=== PATIENT | female | born 1930 | race Caucasian/White ===

== ENCOUNTER 2016-11-24 11:40 | Emergency (ER) | payer OTHER ==
[~2016-11-24] VITALS: Wt 53.0 kg
[2016-11-24] MEDS ORDERED: BELLADONNA/PHENOBARBITAL TAB PO STA (12:37)
[2016-11-24] MEDS ORDERED: LIDOCAINE/MYLANTA 40 ML BTL PO STA (12:37)
[2016-11-24] MEDS ORDERED: ONDANSETRON 4 MG INJ IV STA (12:37)
[2016-11-24] MEDS ORDERED: KETOROLAC 15 MG INJ IV STA (12:37)
[2016-11-24] MEDS ORDERED: SOD CHLORIDE 0.9% 1,000 ML IV STA (12:37)
[2016-11-24 12:51] LABS: BASOPHILS % 0.4 % (0.0-2.0); EOSINOPHILS # 0.1 10^3/ul (0.0-0.5); EOSINOPHILS % 2.2 % (0.0-7.0); HEMATOCRIT 40.4 % (37.0-47.0); LYMPHOCYTES # 1.1 10^3/ul (0.8-2.9); LYMPHOCYTES % 22.5 % (15.0-51.0); MEAN CORPUSCULAR HEMOGLOBIN 30.3 pg (29.0-33.0); MEAN CORPUSCULAR HGB CONC 34.8 g/dl (32.0-37.0); MEAN CORPUSCULAR VOLUME 87.3 fl (82.0-101.0); MEAN PLATELET VOLUME 7.5 fl (7.4-10.4); MONOCYTE # 0.5 10^3/ul (0.3-0.9); MONOCYTES % 10.9 % (0.0-11.0); PLATELET COUNT 226 10^3/UL (140-440); RED BLOOD COUNT 4.63 10^6/ul (4.20-5.40); RED CELL DISTRIBUTION WIDTH 12.5 % (11.5-14.5); UNCORRECTED WBC 4.7 10^3/ul (4.8-10.8); WHITE BLOOD COUNT 4.7 10^3/ul (4.8-10.8)
[2016-11-24 12:54] LABS: CONDITION 1
[2016-11-24 12:58] LABS: ALBUMIN 4.3 g/dl (3.3-4.9)
[2016-11-24 12:59] LABS: CHLORIDE 91 mmol/L (97-110); INR 0.88; POTASSIUM 4.2 mmol/L (3.5-5.1); PROTIME 11.9 Sec (12.2-14.2); PT RATIO 0.9; SODIUM 132 mmol/L (135-144)
[2016-11-24 13:01] LABS: ALBUMIN/GLOBULIN RATIO 1.72; ALKALINE PHOSPHATASE 69 IU/L (42-121); ANION GAP 15 (8-16); ASPARTATE AMINO TRANSFERASE 29 IU/L (15-46); BILIRUBIN,INDIRECT 0.2 mg/dl (0-1.1); BILIRUBIN,TOTAL 0.2 mg/dl (0.2-1.3); CARBON DIOXIDE 30 mmol/L (21-31); CREATININE 0.92 mg/dl (0.44-1.00); TOTAL PROTEIN 6.8 g/dl (6.1-8.1)
[2016-11-24 13:02] LABS: ALANINE AMINOTRANSFERASE 30 IU/L (13-69); BLOOD UREA NITROGEN 24 mg/dl (7-20); CALCIUM 10.2 mg/dl (8.4-10.2); GLUCOSE 98 mg/dl (70-220)
[2016-11-24 13:23] LABS: TROPONIN-I < 0.012 ng/ml (0.00-0.12)
[2016-11-24 13:25] LABS: ADD UMIC YES; URINE BILIRUBIN (Dip) NEGATIVE (NEGATIVE); URINE BLOOD (Dip) 1+ (NEGATIVE); URINE COLOR LT. YELLOW (YELLOW); URINE GLUCOSE (Dip) NEGATIVE (NEGATIVE); URINE KETONES (Dip) NEGATIVE (NEGATIVE); URINE LEUKOCYTE ESTERASE (Dip) TRACE (NEGATIVE); URINE NITRITE (Dip) NEGATIVE (NEGATIVE); URINE TOTAL PROTEIN (Dip) NEGATIVE (NEGATIVE); URINE UROBILINOGEN (Dip) 0.2 E.U./dL (0.1-1.0)
[2016-11-24 13:40] LABS: BACTERIA,URINE RARE; URINE RBCS 0-2 /HPF (0)
[2016-11-24] MEDS ORDERED: OMEP20CA16 PO (13:45)
[2016-11-24] MEDS ORDERED: LISI20TA11 PO (13:46)
[2016-11-24] MEDS ORDERED: HYD25 PO (13:46)
[2016-11-24] MEDS ORDERED: POLY17PO6 PO (14:53)
[2016-11-24] MEDS ORDERED: FLEETOIL PR (14:53)
[2016-11-24] MEDS ORDERED: NAPR-688 PO (14:53)
[2016-11-24] MEDS ORDERED: DOCU-144 PO (14:53)
--- NOTE | 2016-11-24 15:00 | ERD ---
ER Documentation Chief Complaint Date/Time DATE: 11/24/16 TIME: 14:59 Chief Complaint abd pain, back pain. pt. poor historian, daughter translating. HPI 85-year-old woman complaining of diffuse abdominal cramping 2 weeks as well as constipation. She has had no blood per rectum or melena, no fevers or chills, no vomiting or diarrhea, no headache or blurry vision. Patient states she was recently diagnosed with H. pylori gastritis and took a 2 week course of antibiotics, which she finished, and continues to take proton pump inhibitor therapy. She states her abdominal cramping recently is different from the epigastric pain she experienced prior to being diagnosed with gastritis. ROS All systems reviewed and are negative except as per history of present illness. Medications Home Meds Active Scripts Naproxen* (Naproxen*) 500 Mg Tablet, 500 MG PO BID Y for PAIN, #30 TAB Prov:LINDSEY RAGSDALE MD 11/24/16 Mineral Oil* (Fleet* Mineral Oil Enema) 133 Ml Oil, 133 ML [place] NEEDED Y for CONSTIPATION, #1 ENEMA Prov:LINDSEY RAGSDALE MD 11/24/16 Docusate Sodium* (Colace*) 100 Mg Capsule, 100 MG PO BID for CONSTIPATION, #30 CAP Prov:LINDSEY RAGSDALE MD 11/24/16 Polyethylene Glycol* (Miralax*) 17 Gm Powd.pack, 17 GM PO DAILY for CONSTIPATION , #7 Prov:LINDSEY RAGSDALE MD 11/24/16 Reported Medications Hydrochlorothiazide* (Hydrochlorothiazide*) 25 Mg Tab, 25 MG PO DAILY, #30 TAB 11/24/16 Lisinopril* (Lisinopril*) 20 Mg Tablet, 20 MG PO BID, #30 TAB 11/24/16 Omeprazole* (Omeprazole*) 20 Mg Capsule.dr, 20 MG PO AC BREAKFAST, #30 CAP 11/24/16 Allergies Allergies: Coded Allergies: No Known Allergy (Unverified , 11/24/16) PMhx/Soc Hypertension, previous hysterectomy and herniorrhaphy, H. pylori positive gastritis which was recently treated with amoxicillin, clarithromycin, and proton pump inhibitor therapy. History of Surgery: Yes (HERNIA, APPENDIX, HYSTERECTOMY) Anesthesia Reaction: No Hx Neurological Disorder: No Hx Respiratory Disorders: No Hx Cardiac Disorders: No Hx Psychiatric Problems: No Hx Miscellaneous Medical Probl: No Hx Alcohol Use: Yes (SOCIALLY) Hx Substance Use: No Hx Tobacco Use: Yes (SOCIALLY) Smoking Status: Light tobacco smoker FmHx Family History: No diabetes Physical Exam Vitals Vital Signs Date Time Temp Pulse Resp B/P Pulse Ox O2 Delivery O2 Flow Rate FiO2 11/24/16 16:02 71 16 141/69 99 Room Air 11/24/16 14:10 62 16 140/66 97 Room Air 11/24/16 11:41 98.2 70 147/85 99 Physical Exam GENERAL: Well-developed, well-nourished, well-hydrated, moderate discomfort HEENT: Moist mucous membranes, pink conjunctiva, no cervical spine tenderness or step-off deformities, no goiter, no jaundice or icterus, extraocular movements intact without pain. No submandibular induration, and no pharyngeal erythema NEURO: Alert and oriented 3, cranial nerves II through XII intact bilaterally, pupils equal round reactive to light, no focal deficits or facial asymmetry, sensation intact distally Strength 5/5 in upper and lower extremities bilaterally CARDIAC: Regular rate and rhythm, no murmurs rubs or gallops LUNGS: Clear bilaterally no wheezing crackles or stridor ABDOMEN: Soft nontender, no guarding, no rigidity, no rebound, no psoas sign no obturator sign. Normoactive bowel sounds SKIN: Warm and dry to touch, no abrasions, contusions, or hematomas, no lacerations, no ecchymosis, no target lesions, and without ulcers EXTREMITIES: No clubbing cyanosis or edema, calves are bilaterally symmetrical, no Homans sign, no popliteal cord sign. Distal pulses equal and bilateral PSYCH: Normal affect without agitation or irritability Result Diagram: 11/24/16 1240 11/24/16 1240 Results 24 hrs Laboratory Tests Test 11/24/16 12:40 11/24/16 13:06 Alanine Aminotransferase (ALT/SGPT) 30IU/L Albumin 4.3g/dl Albumin/Globulin Ratio 1.72 Alkaline Phosphatase 69IU/L Anion Gap 15 Aspartate Amino Transf (AST/SGOT) 29IU/L Basophils # 0.010^3/ul Basophils % 0.4% Blood Urea Nitrogen 24mg/dl Calcium Level 10.2mg/dl Carbon Dioxide Level 30mmol/L Chloride Level 91mmol/L Creatinine 0.92mg/dl Direct Bilirubin 0.00mg/dl Eosinophils # 0.110^3/ul Eosinophils % 2.2% Globulin 2.50g/dl Glucose Level 98mg/dl Hematocrit 40.4% Hemoglobin 14.0g/dl INR International Normalized Ratio 0.88 Indirect Bilirubin 0.2mg/dl Lipase 228U/L Lymphocytes # 1.110^3/ul Lymphocytes % 22.5% Mean Corpuscular Hemoglobin 30.3pg Mean Corpuscular Hemoglobin Concent 34.8g/dl Mean Corpuscular Volume 87.3fl Mean Platelet Volume 7.5fl Monocytes # 0.510^3/ul Monocytes % 10.9% Neutrophils # 3.010^3/ul Neutrophils % 64.0% Nucleated Red Blood Cells # 0.010^3/ul Nucleated Red Blood Cells % 0.0/100WBC Platelet Count 08287^3/UL Potassium Level 4.2mmol/L Prothrombin Time 11.9Sec Prothrombin Time Ratio 0.9 Red Blood Count 4.6310^6/ul Red Cell Distribution Width 12.5% Sodium Level 132mmol/L Total Bilirubin 0.2mg/dl Total Protein 6.8g/dl Troponin I < 0.012ng/ml White Blood Count 4.710^3/ul Urine Bacteria RARE Urine Bilirubin NEGATIVE Urine Clarity CLEAR Urine Color LT. YELLOW Urine Epithelial Cells RARE Urine Glucose NEGATIVE% Urine Hemoglobin 1+ Urine Ketones NEGATIVE Urine Leukocyte Esterase TRACE Urine Microscopic RBC 0-2/HPF Urine Microscopic WBC 0-2/HPF Urine Nitrite NEGATIVE Urine Specific [place] 1.010 Urine Total Protein NEGATIVE Urine Urobilinogen 0.2 E.U./dL Urine pH 6.0 Current Medications Medications (Trade) Dose Ordered Sig/Cara Route PRN Reason Start Time Stop Time Status Last Admin Dose Admin Sodium Chloride (NS) 1,000 ml @ 1,000 mls/hr Q1H STAT IV 11/24/16 12:37 11/24/16 13:36 DC 11/24/16 12:46 Ondansetron HCl (Zofran Inj) 4 mg ONCE STAT IV 11/24/16 12:37 11/24/16 12:39 DC 11/24/16 12:47 Miscellaneous Medication (Gi Cocktail (2)) 40 ml ONCE STAT PO 11/24/16 12:37 11/24/16 12:39 DC 11/24/16 12:47 Belladonna/ Phenobarbital () 2 tab ONCE STAT PO 11/24/16 12:37 11/24/16 12:40 DC 11/24/16 12:47 Ketorolac Tromethamine (Toradol) 15 mg ONCE STAT IV 11/24/16 12:37 11/24/16 12:40 DC 11/24/16 12:47 Morphine Sulfate (morphine) 4 mg ONCE STAT IV 11/24/16 15:04 11/24/16 15:05 DC Procedures/MDM IV line was established patient was placed on director of cardiac cath lab rhythm strip revealed a sinus rhythm at about 80 bpm with upright P and T waves. Patient was afebrile. CBC was unremarkable, electrolytes revealed dehydration with a BUN/creatinine of 24/0.9, liver function tests were normal, troponin was negative. Urinalysis was negative for infection. Patient received 1 L normal saline intravenously, Toradol 50 mg IV, Zofran 4 mg IV, and a GI cocktail 30 cc p.o. with good effect. For later complaints of discomfort I administered morphine [address] scan of the abdomen and pelvis was performed there was no acute inflammatory or infectious pathology noted. Differential diagnoses considered, included but not limited to acute coronary syndrome, pulmonary embolism, aortic dissection, abdominal aortic aneurysm, sepsis, stroke, meningitis, encephalitis, pneumonia, appendicitis, cholecystitis , bowel obstruction, pyelonephritis, nephrolithiasis, cystitis, as well as metabolic, hematologic, and electrolyte abnormalities. As well as abscess, cellulitis, fractures, and dislocations. Patient feels much better at this time, and vital signs are normal, symptoms have improved. I did give strict instructions to return to the ED if symptoms continue or worsen, patient will otherwise follow-up with primary care physician. Patient understood instructions and agreed to plan. Departure Diagnosis: Primary Impression: Constipation Constipation type: unspecified constipation type Qualified Code: K59.00 - Constipation, unspecified constipation type Additional Impressions: Abdominal pain Abdominal location: generalized Qualified Code: R10.84 - Generalized abdominal pain Dehydration Condition: Good Patient Instructions: Abdominal Pain, Constipation (Adult) LINDSEY RAGSDALE MD Nov 24, 2016 15:00
[2016-11-24] MEDS ORDERED: morphine 4 MG/ML VIAL IV STA (15:04)
--- NOTE | 2016-11-24 15:48 | RADRPT ---
PROCEDURE: CT Abdomen and Pelvis without intravenous contrast. CLINICAL INDICATION: Abdominal pain . TECHNIQUE: CT scan of the abdomen and pelvis without intravenous contrast was performed on a multi -slice CT scanner. Coronal and sagittal reformatted images were obtained from the axial source image s. Images were reviewed on a high-resolution PACS workstation. Total DLP = 454 mGy-cm. CTDIvol = 9.3 mGy. One or more of the following dose reduction techniques were used: Automated exposure control. Adjustment of the mA and/or kV according to patient size. Use of iterative reconstruction technique. COMPARISON: None. FINDINGS: CT abdomen and pelvis: The lung bases are clear. The heart size is normal size with calcific atherosclerosis of the mitral valve.. The liver is normal in size and density. There is a 7 mm low-density lesion near the post erior dome of the liver possibly a cyst. No other focal mass or intrahepatic biliary dilatation is seen.. The spleen is normal in size and homogeneous in density. The pancreas as visualized is nor mal. The gallbladder is nondistended with a intraluminal calcified stones. The. The adrenal gland s are normal. The kidneys are symmetrically unremarkable. No urolithiasis, obstructive uropathy, o r solid mass lesion is seen. There is a 5.8 cm right renal cyst. The stomach is partially collapsed, but is grossly unremarkable. The small bowels are unremarkable. The colon and rectum are normal. There are scattered colonic diverticula. There is no evidence of a ppendicitis or diverticulitis. The uterus has been removed.. The bladder is decompressed. There is n o abdominal or pelvic adenopathy, free fluid, free air, mass or mesenteric inflammation. The aorta is normal in caliber with tortuosity and calcific atherosclerosis.. The osseous structures showing degenerative spondylosis of the spine. No osteolytic or osteoblastic lesions are identifie d. The soft tissues are within normal limits. Lack of IV and oral contrast limits sensitivity of e xam. IMPRESSION: 1. Hepatic and right renal cysts. 2. Cholelithiasis. 3. Status post hysterectomy. 4. Otherwise unremarkable noncontrast CT abdomen and pelvis without acute pathology identified. RPTAT: AA .Donnie Blank, MD, Date Time Electronically viewed and signed by .Donnie Parson MD, on 11/24/2016 15:48 .L/
[2016-11-24 16:02] VITALS: BP 141/69; PULSE 71; RESP 16
== END 2016-11-24 16:41 | disposition home or self-care (01) ==
LOC: E/R 11:40
DX: K59.00 Constipation, unspecified (principal); F17.210 Nicotine dependence, cigarettes, uncomplicated; I10 Essential (primary) hypertension
CPT/HCPCS: 74176; 80053; 81001; 83690; 84484; 85025; 85610; J1885; J2405; J7030; Z7610; 36415; 81003; 96361; 96374; 96375